=== PATIENT | male | born 1955 | race Caucasian/White ===

== ENCOUNTER → 2017-07-24 | Outpatient (CLI) | payer OTHER | LOC: BMCIMAGING 09:24 → EDSTATUS 09:26 → BMCIMAGING 09:29 | PROVIDERS: ATTEND Family Medicine | DX: R05 Cough (principal) ==

== ENCOUNTER → 2018-01-10 | Outpatient (CLI) | payer OTHER | LOC: BMCIMAGING 07:53 | PROVIDERS: ATTEND Orthopaedic Surgery | DX: Z09 Encounter for follow-up examination after completed treatment for conditions other than malignant neoplasm (principal); Z98.890 Other specified postprocedural states ==

== ENCOUNTER 2018-03-15 17:02 | Emergency (ER) | payer OTHER ==
[2018-03-15] MEDS ORDERED: methylPREDNISolone SOD SUCC 125 MG/2 ML VIAL IVP ONE (17:19)
[2018-03-15] MEDS ORDERED: RANITIDINE 50 MG/2 ML VIAL IVP ONE (17:19)
--- NOTE | 2018-03-15 17:19 | EDPHY ---
HPI/HX/ROS/PE/MDM Narrative: CLINICAL IMPRESSION: Allergic reaction to allergy shots ASSESSMENT/PLAN: This is a 62-year-old male who presents to the emergency department with diffuse. Retic urticarial rash, facial flushing, mild nausea and mild throat tightness in the setting of recent allergy shots. Last allergy shot was 3 hr prior to arrival. Vital signs stable, no hypoxia, respiratory distress, drooling, or airway compromise. No reports of chest pain or shortness of breath. Patient has significant improvement after IV Benadryl, hydroxyzine, Solu-Medrol, and ranitidine. He is tolerating fluids, ambulating without assistance, and has a nearly resolved rash. Patient was given a prednisone taper, [id number] remedies discussed, digital marketing associate follow-up recommended in 24 hr, warning signs return to ED sooner alignment discharge. DIFFERENTIAL DX: Differential includes but not limited to systemic allergic reaction, anaphylactic reaction, urticaria, upper airway compromise, bronchial spasms ED COURSE: 6:25 p.m.: Patient reassessed, states he does not feel significantly improved, still feels very itchy and flushed. States his throat tightness is improving 7:40 p.m.: Patient reassessed, feeling significant improvement. Face is no longer flushed, urticaria near resolved. Throat tightening fully gone. No shortness of breath, vital signs stable CHIEF COMPLAINT: Allergic reaction to allergy shots HPI: This is a very pleasant 62-year-old male who presents to the emergency department with itching, facial flushing, mild nausea, and mild throat tightness in the setting of recent allergy injections. Patient is followed by Dr. Selin Granados, began taking allergy injections on Monday of this week. He had 3 hr worth of injections today, finished around 2:30 p.m.. Approximately 1 hr ago he began feeling flushed in the face, itchy all over his body and had some throat tightness. He was prescribed an EpiPen for possible reaction during allergy shots but did not take this. He did not take anything prior to arrival. He reports no history of anaphylaxis or allergy reaction requiring intubation or hospitalization. He denies any other new medications or over-the- counter products. He has numerous allergies. No reports of tongue swelling, drooling, difficulty handling secretions, wheezing, chest tightness or shortness of breath, vomiting or fever. PMH: Hyperlipidemia, GERD, social anxiety, severe allergies Pertinent Past Surgical History: ORIF left clavicle fracture, left inguinal hernia repair Family History: Noncontributory Social History: Nonsmoker, , lives with his REVIEW OF SYSTEMS: All other systems negative Constitutional: No fever, no chills, appetite change. Eyes: No discharge, vision change ENT: No sore throat, congestion, ear pain. Cardiovascular: No chest pain, no palpitations. Respiratory: No cough, no shortness of breath. Gastrointestinal: No abdominal pain, no vomiting, diarrhea. Musculoskeletal: No back pain, joint swelling, joint pain, myalgias. Skin: + rashes, color change. Neurological: No headache, dizziness, weakness. PHYSICAL EXAM: General Appearance: Alert, oriented, appropriate, cooperative, NAD, well hydrated, non-toxic appearing, VSS, no hypoxia, speaking in full sentences, tolerating secretions well, no respiratory distress HEENT: Diffuse facial flushing noted, no diaphoresis,, no tongue swelling or intraoral lesions TMs are clear bilaterally no perforation or FB, no injection, no evidence of serous or mucopurulent otitis. Oropharynx clear is no erythema or exudates, no tonsillar hypertrophy or asymmetry. Dentition without abnormality. Eyes: PERRLA, no acute vision change, nystagmus, swelling, discharge, pain or photosensitivity. Conjunctiva pink, no pallor or injection, no ocular lesions, erythema or swelling Neck: Supple, nontender, no lymphadenopathy, no midline pain, FROM, no meningismus. Respiratory: There are no retractions, lungs are clear to auscultation. Cardiac: Regular rate and rhythm, no murmurs or gallops. Gastrointestinal: Abdomen is soft, nontender, bowel sounds normal, no masses/ hernia, no rigidity, guarding or focal peritoneal findings. Neurological: Alert and oriented x 3, CN 2-12 grossly intact, normal gait no ataxia, DTR's intact, normal sensation and strength Skin: Diffuse maculopapular erythematous urticaria over trunk, back, arms and upper legs, no open wound or blisters Musculoskeletal: Extremities are symmetrical, full range of motion, no tenderness, deformity, swelling, or erythema. Psychiatric: Patient is oriented X 3, there is no agitation. MEDICAL DECISION MAKING: Patient was seen independently. Secondary supervising physician at time of evaluation was Dr. Avitia . Diagnosis: Allergic reaction. New, requires workup Summary: See Assessment and Plan for summary of ED visit Patient Progress: Improved. - Data Points Medications Given: Discontinued Medications Diphenhydramine HCl (Benadryl Injection) 50 mg IVP EDNOW ONE Stop: 03/15/18 17:20 Last Admin: 03/15/18 17:27 Dose: 50 mg Hydroxyzine HCl (Hydroxyzine Hcl) 25 mg PO EDNOW ONE Stop: 03/15/18 18:34 Last Admin: 03/15/18 19:06 Dose: 25 mg Methylprednisolone Sodium Succinate (Solu-Medrol) 125 mg IVP EDNOW ONE Stop: 03/15/18 17:20 Last Admin: 03/15/18 17:27 Dose: 125 mg Ranitidine HCl (Zantac) 50 mg IVP EDNOW ONE Stop: 03/15/18 17:20 Last Admin: 03/15/18 17:27 Dose: 50 mg General Time Seen by Provider: 03/15/18 17:09 Initial Vital Signs: Initial Vital Signs Temperature (C) 36.4 C 03/15/18 17:04 Heart Rate 77 03/15/18 17:04 Respiratory Rate 18 03/15/18 17:04 Blood Pressure 145/85 H 03/15/18 17:04 O2 Sat (%) 95 03/15/18 17:04 O2 Delivery Mode Room Air Allergies/Adverse Reactions: No Known Allergies Allergy (Unverified 03/15/18 17:07) Home Medications: Medication Instructions Recorded Ezetimibe/Simvastatin [Vytorin 1 tab PO DAILY 07/22/15 10-40 mg Tablet] Herbals/Supplements -Info Only 1 ea PO DAILY 07/22/15 Trego-3 Fatty Acids [Fish Oil 1000 1,000 mg PO DAILY 07/22/15 mg (*)] Pantoprazole Sodium [Protonix] 40 mg PO DAILY #30 tab 07/22/15 Paroxetine HCl 40 mg PO DAILY 07/22/15 hydrOXYzine HCL [Hydroxyzine HCl] 25 mg PO Q8 PRN #10 tablet 03/15/18 Departure - Departure Disposition: Home, Routine, Self-Care Clinical Impression: Allergic reaction Qualifiers: Encounter type: initial encounter Qualified Code(s): T78.40XA - Allergy, unspecified, initial encounter Condition: Good Instructions: Allergies (ED), General Allergic Reaction (ED) Additional Instructions: DISCHARGE INSTRUCTIONS FROM YOUR DOCTOR Thank you for visiting our emergency department today. Please keep in mind that discharge from the emergency department does not mean that there is nothing wrong - it simply means that we have not identified an emergency condition that requires further evaluation or treatment in the hospital. You should always plan to follow up with primary care for re-evaluation of your condition in the next 2-3 days. If you have been referred to a specialist, please call as soon as possible (today or tomorrow) to schedule your follow up appointment at the appropriate time. [ Your treated for an allergic reaction with steroids, Benadryl, ranitidine, and hydroxyzine. Symptoms have improved significantly. A short steroid taper was prescribed. Please use Radha or Zyrtec in the morning, Benadryl in the evening, famotidine or ranitidine twice daily, and a prescription for hydroxyzine was given to use if needed for breakthrough itching. Please follow up with her digital marketing associate tomorrow. Return to the emergency department immediately for worsening symptoms, throat tightness, tongue swelling, shortness of breath or chest pain, nausea or vomiting or any other concern. People present with illnesses and injuries in different ways, and it is always possible that we have missed something. You may always return for re-evaluation if symptoms worsen or if they are not improving or if you develop new/different symptoms. Again, thank you for choosing our emergency department. We hope that you feel better. Referrals: Ankita Luevano MD [Primary Care Provider] - As per Instructions Selin Granados MD [[facility] [place]] - As per Instructions Prescriptions: hydrOXYzine HCL [Hydroxyzine HCl] 25 mg PO Q8 PRN #10 tablet PRN Reason: Itching
[2018-03-15] MEDS ORDERED: hydrOXYzine HCL 25 MG TAB PO ONE (18:33)
[2018-03-15 19:52] VITALS: BP 129/78
== END 2018-03-15 19:52 | disposition home or self-care (01) ==
DX: T80.52XA Anaphylactic reaction due to vaccination, initial encounter (principal); E78.5 Hyperlipidemia, unspecified
CPT/HCPCS: 96374; J1200; J2780; J2930

== ENCOUNTER → 2018-06-13 | Outpatient (CLI) | payer OTHER | LOC: BMCIMAGING 08:55 | PROVIDERS: ATTEND Family Medicine | DX: M25.522 Pain in left elbow (principal) ==

== ENCOUNTER → 2018-07-27 | Outpatient (CLI) | payer OTHER | LOC: BMCIMAGING 09:45 | PROVIDERS: ATTEND Physician Assistant | DX: M25.561 Pain in right knee (principal); M25.461 Effusion, right knee ==